=== PATIENT | male | born 1985 | race Caucasian/White ===

== ENCOUNTER 2019-02-06 22:52 | Emergency (ER) | payer OTHER ==
[2019-02-06] MEDS ORDERED: NACL 0.9% 1000 ML 1,000 ML IV ONE (23:01)
[2019-02-06 23:37] LABS: Basophils % (Auto) 0.2 % (0.0-1.8); Eosinophils # (Auto) 0.1 K/mm3 (0.0-0.4); Eosinophils % (Auto) 0.7 % (0.0-4.3); Hematocrit 41.8 % (35.5-45.6); Hemoglobin 14.9 gm/dl (11.8-15.2); Lymphocytes % (Auto) 13.2 % (13.4-35.0); Mean Corpuscular HGB Conc 36 % (32-34); Mean Corpuscular Volume 86 fl (84-94); Monocytes # (Auto) 0.9 K/mm3 (0.0-0.8); Monocytes % (Auto) 5.7 % (0.0-7.3); Platelet Count 259 K/mm3 (140-440); Red Blood Count 4.85 M/mm3 (3.65-5.03); Red Cell Distribution Width 13.3 % (13.2-15.2)
[2019-02-06 23:57] LABS: Alanine Aminotransferase 70 units/L (7-56); Albumin 4.5 g/dL (3.9-5); BUN/Creatinine Ratio 16; Blood Urea Nitrogen 11 mg/dL (9-20); Calcium 9.1 mg/dL (8.4-10.2); Hemolysis Index 5
[2019-02-07 03:13] LABS: Bilirubin,Urine NEG (Negative); Blood,Urine NEG (Negative); Color,Urine Yellow (Yellow); Mucus,Urine FEW /HPF; Urobilinogen,Urine < 2.0 mg/dL (<2.0)
--- NOTE | 2019-02-07 03:50 | Emergency Department Report ---
ED General Adult HPI - General Chief complaint: Abdominal Pain Stated complaint: N/V/D Time Seen by Provider: 02/07/19 03:49 Source: patient Mode of arrival: Ambulatory Limitations: No Limitations - History of Present Illness Initial comments: 33 y.o. male with PMHx of alcohol abuse presents with complaint of abdominal pain and vomiting. Patient states the pain presented at 4 PM today. Patient states his last vomit was one hour ago. Patient denies any hematemesis. Patient does admit to drinking alcohol daily. Patient states that he has had multiple episodes of diarrhea. Patient is not on any antibiotics and has had no recent travel. Patient states that he has noted blood in his stool on the S episode of diarrhea. Patient denies any shortness of breath or chest pain. Patient states he had no prior surgeries. Patient denies fever. Patient denies any sick contacts. Severity scale (0 -10): 7 - Related Data Previous Rx's Medication Instructions Recorded Last Taken Type Famotidine [Pepcid] 20 mg PO BID #60 tablet 02/07/19 Unknown Rx Ondansetron [Zofran Odt] 4 mg PO Q8HR #14 tab.rapdis 02/07/19 Unknown Rx traMADol [Ultram] 50 mg PO Q6HR PRN #20 tablet 02/07/19 Unknown Rx Allergies Allergy/AdvReac Type Severity Reaction Status Date / Time No Known Allergies Allergy Verified 02/07/19 03:49 ED Review of Systems ROS: Stated complaint: N/V/D Other details as noted in HPI Constitutional: denies: chills, fever Eyes: denies: eye pain, eye discharge, vision change ENT: denies: ear pain, throat pain Respiratory: denies: cough, shortness of breath, wheezing Cardiovascular: denies: chest pain, palpitations Endocrine: no symptoms reported Gastrointestinal: abdominal pain, nausea, vomiting, hematochezia Genitourinary: denies: urgency, dysuria Musculoskeletal: denies: back pain, joint swelling, arthralgia Skin: denies: rash, lesions Neurological: denies: headache, weakness, paresthesias Psychiatric: denies: anxiety, depression Hematological/Lymphatic: denies: easy bleeding, easy bruising ED Past Medical Hx - Past Medical History Previous Medical History?: No - Surgical History Past Surgical History?: No - Social History Smoking Status: Never Smoker Substance Use Type: Alcohol - Medications Home Medications: Home Medications Medication Instructions Recorded Confirmed Last Taken Type Famotidine [Pepcid] 20 mg PO BID #60 tablet 02/07/19 Unknown Rx Ondansetron [Zofran Odt] 4 mg PO Q8HR #14 tab.rapdis 02/07/19 Unknown Rx traMADol [Ultram] 50 mg PO Q6HR PRN #20 tablet 02/07/19 Unknown Rx ED Physical Exam - General Limitations: No Limitations General appearance: alert, other (uncomfortable; awake) - Head Head exam: Present: atraumatic, normocephalic - Eye Eye exam: Present: normal appearance - ENT ENT exam: Present: mucous membranes dry - Neck Neck exam: Present: normal inspection - Respiratory Respiratory exam: Present: normal lung sounds bilaterally. Absent: respiratory distress - Cardiovascular Cardiovascular Exam: Present: regular rate, normal rhythm. Absent: systolic murmur, diastolic murmur, rubs, gallop - GI/Abdominal GI/Abdominal exam: Present: soft, tenderness (noted in the left lower quadrant), normal bowel sounds. Absent: guarding, rebound - Rectal Rectal exam: Present: heme (+) stool (brown stool), other (no melena present). Absent: bloody stool - Extremities Exam Extremities exam: Present: normal inspection - Back Exam Back exam: Present: normal inspection - Neurological Exam Neurological exam: Present: alert, oriented X3 - Psychiatric Psychiatric exam: Present: normal affect, normal mood - Skin Skin exam: Present: warm, dry, intact, normal color. Absent: rash ED Course Vital Signs 02/06/19 02/07/19 02/07/19 22:59 02:45 03:37 Temperature 97.8 F 100.2 F H Pulse Rate 105 H 105 H Respiratory 18 30 H 24 Rate Blood Pressure 117/84 Blood Pressure 114/65 [Right] O2 Sat by Pulse 95 94 Oximetry ED Medical Decision Making - Lab Data Result diagrams: 02/06/19 23:13 02/06/19 23:13 - Medical Decision Making Patient's pain improved with a total of 6 mg morphine as well as Zofran therapy. Patient also received IV fluids. Patient was noted to have a rectal examination which shows presence of brown stool which is guaiac positive. Patient however has a stable hemoglobin. Likely a component of viral gastritis and constipation symptoms. Patient be discharged to follow up with gastroenterology as an outpatient. Patient was hemodynamically stable. - Differential Diagnosis Obstruction; Pancreatitis; Electrolyte abnormality; Anemia Critical care attestation.: If time is entered above; I have spent that time in minutes in the direct care of this critically ill patient, excluding procedure time. ED Disposition Clinical Impression: Abdominal pain, Gastroenteritis, GI bleed Disposition: TO HOME OR SELFCARE Is pt being admited?: No Does the pt Need Aspirin: No Condition: Stable Instructions: Gastroenteritis (ED), Gastrointestinal Bleeding (ED), Acute Abdominal Pain (ED) Prescriptions: Famotidine [Pepcid] 20 mg PO BID #60 tablet traMADol [Ultram] 50 mg PO Q6HR PRN #20 tablet PRN Reason: Pain Ondansetron [Zofran Odt] 4 mg PO Q8HR #14 tab.rapdis Referrals: GRETTA PARKER MD [Staff Physician] - 3-5 Days Time of Disposition: 05:25 Print Language: MALTESE
[2019-02-07] MEDS ORDERED: MORPHINE IV ONE ×3 (03:57→05:09)
[2019-02-07] MEDS ORDERED: ZOFRAN IV ONE (03:57)
[2019-02-07] MEDS ORDERED: NACL 0.9% 1000 ML 1,000 ML IV ONE (03:57)
[2019-02-07] MEDS ORDERED: PROTONIX IV ONE (04:02)
--- NOTE | 2019-02-07 04:33 | XRay Report ---
PROCEDURE: XR CHEST 1V AP TECHNIQUE: A portable upright view the chest was obtained. HISTORY: chest pain COMPARISONS: None FINDINGS: The heart size and vascularity appear normal. The lungs are clear. Pleural fluid is not seen. The bon es and soft tissues do not show any acute changes. IMPRESSION: No acute cardiopulmonary process.. This document is electronically signed by Dale Lou MD., February 07 2019 04:31:20 AM ET
--- NOTE | 2019-02-07 04:47 | Cat Scan Report ---
PROCEDURE: CT ABDOMEN PELVIS WO CON TECHNIQUE: Computerized axial tomography of the abdomen and pelvis was performed without intravenous contrast. This study is performed without intravascular contrast material and its sensitivity for ab dominal and pelvic pathology, including neoplasms, inflammation, abscess, free fluid, thrombosis, art erial dissection and infarction, is reduced compared with a contrast enhanced study. CT DOSE LENGTH PRODUCT: mGycm HISTORY: abdominal pain COMPARISONS: None . FINDINGS: Visualized lower thorax: No significant abnormality. Liver: The liver is fatty. There is no mass.. Spleen: Normal size and attenuation. Gallbladder and biliary system: Normal. Pancreas: Normal. Adrenals: Normal. Kidneys: There are no kidney stones or ureteral stones. There is no hydronephrosis.. GI tract: There is no bowel obstruction, colitis or enteritis. The appendix is normal. . Lymph nodes and mesentery: Normal. Vasculature: Normal.. Bladder: Normal. Reproductive organs: Normal. Peritoneum: There is no ascites or free air, abscess or adenopathy.. Musculoskeletal structures: No significant abnormality. IMPRESSION: There is no acute intra-abdominal abnormality. . This document is electronically signed by Timbo Marquis MD., February 07 2019 04:44:47 AM ET
[2019-02-07 06:13] VITALS: BP 115/69
== END 2019-02-07 06:20 | disposition home or self-care (01) ==
LOC: ED 22:52
DX: K52.9 Noninfective gastroenteritis and colitis, unspecified (principal); K92.2 Gastrointestinal hemorrhage, unspecified
CPT/HCPCS: 36415; 71045; 74176; 80053; 81001; 83690; 85025; 96361; 96374; 96375; 96376; 99284; C9113; J2270; J2405; J7030

== ENCOUNTER 2021-03-05 12:49 | Emergency (ER) | payer OTHER ==
[2021-03-05] MEDS ORDERED: SODIUM CHLORIDE 0.9% 1000 ML 1,000 ML IV ONE (14:10)
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
[2021-03-05 14:36] LABS: Basophils # (Auto) 0.1 K/mm3 (0.0-0.1); Basophils % (Auto) 0.7 % (0.0-1.8); Eosinophils # (Auto) 0.1 K/mm3 (0.0-0.4); Eosinophils % (Auto) 1.4 % (0.0-4.3); Hematocrit 42.7 % (35.5-45.6); Hemoglobin 14.4 gm/dl (11.8-15.2); Lymphocytes # (Auto) 2.3 K/mm3 (1.2-5.4); Lymphocytes % (Auto) 25.1 % (13.4-35.0); Mean Corpuscular HGB Conc 34 % (32-34); Mean Corpuscular Volume 82 fl (84-94); Monocytes # (Auto) 0.7 K/mm3 (0.0-0.8); Monocytes % (Auto) 7.5 % (0.0-7.3); Platelet Count 240 K/mm3 (140-440); Red Blood Count 5.21 M/mm3 (3.65-5.03); Red Cell Distribution Width 16.7 % (13.2-15.2)
[2021-03-05 14:53] LABS: Alanine Aminotransferase 159 units/L (7-56); Albumin 4.2 g/dL (3.9-5); Blood Urea Nitrogen 9 mg/dL (9-20); Calcium 8.9 mg/dL (8.4-10.2); Hemolysis Index 26
[2021-03-05] MEDS ORDERED: HYDROmorphone 1 MG/1 ML INJ IV ONE (14:58)
[2021-03-05] MEDS ORDERED: ONDANSETRON 4 MG/2 ML INJ IV ONE (14:59)
[2021-03-05 15:05] LABS: BUN/Creatinine Ratio 13
--- NOTE | 2021-03-05 15:26 | Cat Scan Report ---
CT BRAIN: 03/05/2021 INDICATION / CLINICAL INFORMATION: MAIN. Trauma COMPARISON: None available. FINDINGS: BRAIN/INTRACRANIAL STRUCTURES: Unenhanced CT images of the brain demonstrate no evidence of acute int racranial abnormality. Ventricles and sulci are normal in size and shape. There is no evidence of acute ischemic injury, hemorrhage, or mass. There are no abnormal extra-axial fluid collections. EXTRACRANIAL STRUCTURES: Unremarkable. IMPRESSION: No acute abnormality. All CT scans at this location are performed using dose reduction to ALARA by means of automated expos ure control. Signer Name: Rob Wick MD Signed: 03/05/2021 3:21 PM Workstation Name: [id number]
--- NOTE | 2021-03-05 15:28 | Cat Scan Report ---
CT CERVICAL SPINE: 03/05/2021 INDICATION / CLINICAL INFORMATION: MAIN. Trauma COMPARISON: None available. FINDINGS: CT images of the cervical spine were obtained. Images are evaluated in the axial, coronal, and sagitt al planes. There is no evidence of acute abnormality. Mild right convex scoliosis of the cervical spine is present. Vertebral body alignment is otherwise u nremarkable. There is no evidence of fracture or dislocation. Central canal and neural foramina are intact at all levels. CRANIOCERVICAL JUNCTION: Unremarkable. PARASPINAL STRUCTURES: Unremarkable IMPRESSION: No significant abnormality. All CT scans at this location are performed using dose reduction to ALARA by means of automated expos ure control. Signer Name: Rob Wick MD Signed: 03/05/2021 3:23 PM Workstation Name: [id number]
--- NOTE | 2021-03-05 15:29 | Cat Scan Report ---
CT LUMBAR SPINE: 03/05/2021 INDICATION / CLINICAL INFORMATION: MAIN. Trauma COMPARISON: None available. FINDINGS: CT images of the lumbar spine were obtained. Images are evaluated in the axial, coronal, and sagittal planes. There is no evidence of acute abnormality. Vertebral body height and alignment is normal at all levels. Disc profiles are well-preserved at all levels. There is no evidence of focal disc herniation or nerv e root compression. PARASPINAL STRUCTURES: Unremarkable. IMPRESSION: No acute abnormality. All CT scans at this location are performed using dose reduction to ALARA by means of automated expos ure control. Signer Name: Rob Wick MD Signed: 03/05/2021 3:25 PM Workstation Name: [id number]
[2021-03-05] MEDS ORDERED: IBUPROFEN 800 MG TAB PO ONE (15:31)
[2021-03-05] MEDS ORDERED: CYCLOBENZAPRINE 10 MG TAB PO ONE (15:32)
--- NOTE | 2021-03-05 15:56 | XRay Report ---
RIGHT SHOULDER 3 VIEWS INDICATION / CLINICAL INFORMATION: MAIN COMPARISON: None available. FINDINGS: BONES / JOINT(S): No acute fracture or subluxation. No significant arthritis. SOFT TISSUES: No significant abnormality. ADDITIONAL FINDINGS: None. Signer Name: Charles Jimenez MD Signed: 03/05/2021 3:52 PM Workstation Name: [id number]
[2021-03-05 17:11] VITALS: BP 142/88
--- NOTE | 2021-03-06 17:11 | Electrocardiograph Report ---
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
== END 2021-03-05 17:22 | disposition home or self-care (01) ==
LOC: ED 12:49
DX: M79.10 Myalgia, unspecified site (principal); R74.01 Elevation of levels of liver transaminase levels; Z79.899 Other long term (current) drug therapy; V49.49XA Driver injured in collision with other motor vehicles in traffic accident, initial encounter; Y93.89 Activity, other specified; Y92.488 Other paved roadways as the place of occurrence of the external cause; Y99.8 Other external cause status
CPT/HCPCS: 36415; 70450; 72125; 72131; 73030; 80053; 85025; 93005; 96361; 96374; 96375; 99285; J1170; J2405; J7030